=== PATIENT | female | born 1970 | race Caucasian/White ===

== ENCOUNTER 2023-02-10 15:21 | Emergency (ER) | payer OTHER ==
[~2023-02-10] VITALS: Ht 165.1 cm; Wt 105.7 kg
--- NOTE | 2023-02-10 15:32 | NUR ---
CALLED IN IN LOBBY, NO ANSWER
--- NOTE | 2023-02-10 15:48 | NUR ---
CALLED IN LOBBY NO ANSWER.
[2023-02-10 15:49] VITALS: BP 137/76
--- NOTE | 2023-02-10 15:55 | NUR ---
MD NOTIFIED ABOUT FACIAL DROOP, MD IN TRIAGE ROOM FOR ASSESSMENT
[2023-02-10] MEDS ORDERED: IBUP-2213 PO (17:20)
[2023-02-10] MEDS ORDERED: OMEP40EC24 PO (17:20)
[2023-02-10 17:33] VITALS: BP 137/75
--- NOTE | 2023-02-10 17:35 | NUR ---
Patient discharged with v/s stable. Written and verbal after care instructions given and explained. Patient alert, oriented and verbalized understanding of instructions. Ambulatory with steady gait. All questions addressed prior to discharge. ID band removed. Patient advised to follow up with PMD. Rx of IBUPROFEN AND PROLOSEC given. Patient educated on indication of medication including possible reaction and side effects. Opportunity to ask questions provided and answered.
== END 2023-02-10 17:33 | disposition home or self-care (01) ==
LOC: MED 15:21
DX: R51.9 Headache, unspecified (principal); R20.2 Paresthesia of skin; F17.200 Nicotine dependence, unspecified, uncomplicated; Z79.899 Other long term (current) drug therapy
CPT/HCPCS: 70450; 99284

== ENCOUNTER 2023-05-07 22:48 | Emergency (ER) | payer OTHER ==
[~2023-05-07] VITALS: Ht 165.1 cm; Wt 108.9 kg
[~2023-05-07 22:48] MED LIST: IBUP-2213 PO; OMEP40EC24 PO
[2023-05-07 23:29] VITALS: BP 130/64; PULSE 85; RESP 16; TEMP 98; O2SAT 98
--- NOTE | 2023-05-07 23:32 | NUR ---
to lobby a/w bed ambulatory
--- NOTE | 2023-05-08 01:52 | NUR ---
PT TAKEN TO BED 12
--- NOTE | 2023-05-08 02:10 | NUR ---
Pt BIB herself with c/o pain and swelling on both legs for more than a week now. Pain scale of 7/10 as per the pt. Conscious, AAOx4. Denies any PMHx. Denies any allergies. On medication of Lasix and Potassium.
[2023-05-08 02:55] LABS: BASOPHILS # (AUTO) 0.1 K/uL (0.00-0.22); BASOPHILS % (AUTO) 0.6 % (0.0-2.0); EOSINOPHILS # (AUTO) 0.2 K/uL (0-0.4); HEMATOCRIT 38.7 % (36-48); LYMPHOCYTES # (AUTO) 2.4 K/uL (2.5-16.5); LYMPHOCYTES % (AUTO) 28.7 % (20.5-51.1); MEAN CORPUSCULAR HEMOGLOBIN 30 pg (27-31); MEAN CORPUSCULAR HGB CONC 34 g/dL (33-37); MEAN CORPUSCULAR VOLUME 88.1 fL (80-94); MONOCYTES # (AUTO) 0.6 K/uL (0.8-1.0); MONOCYTES % (AUTO) 6.6 % (1.7-9.3); NEUTROPHILS # (AUTO) 5.1 K/uL (1.8-7.7); NEUTROPHILS % (AUTO) 61.1 % (42.2-75.2); PLATELET COUNT (AUTO) 285 K/uL (140-450); RED BLOOD CELL COUNT(AUTO) 4.39 MIL/uL (4.20-5.40); RED CELL DISTRIBUTION WIDTH 13.8 % (11.6-13.7); WHITE BLOOD COUNT (AUTO) 8.4 K/uL (4.8-10.8)
[2023-05-08 03:07] LABS: ANION GAP 12.2 (8-16); CARBON DIOXIDE 25.4 mmol/L (21-32); CREATININE 0.8 mg/dL (0.6-1.3); POTASSIUM 3.6 mmol/L (3.5-5.1); TOTAL BILIRUBIN 0.3 mg/dL (0.0-1.0)
--- NOTE | 2023-05-08 03:48 | NUR ---
Pt is comfortably asleep with rise and fall of chest noted.
[2023-05-08 04:18] VITALS: TEMP 98
--- NOTE | 2023-05-08 04:18 | NUR ---
Patient discharged. Written and verbal after care instructions given and explained. Patient verbalized understanding. Ambulatory. All questions addressed prior to discharge. Advised to follow up with PMD.
[2023-05-08 04:25] VITALS: BP 105/78; PULSE 79; RESP 20; O2SAT 98
== END 2023-05-08 04:18 | disposition home or self-care (01) ==
LOC: MED 22:48
DX: R60.0 Localized edema (principal); Z79.899 Other long term (current) drug therapy; Z79.1 Long term (current) use of non-steroidal anti-inflammatories (NSAID)
CPT/HCPCS: 36415; 80053; 85025; 99283